=== PATIENT | female | born 1985 | race American Indian/Alaskan Native ===

== ENCOUNTER 2018-02-12 21:14 | Observation (INO) | payer OTHER ==
[2018-02-12 21:26] VITALS: O2SAT 100
--- NOTE | 2018-02-12 21:49 | ED PDOC ---
Arrival/HPI - General Historian: Patient - History of Present Illness Time/Duration: Other (this morning, intermittently throughout day) Symptom Onset: Sudden Symptom Course: Other (intermittent fevers, persisting malaise) Quality: Aching Severity Level: Mild Activities at Onset: Other (present on awaking) <Sloan Martinez - Last Filed: 02/12/18 23:18> <Sukumar Wright - Last Filed: 02/13/18 00:34> - General Chief Complaint: Fever Time Seen by Provider: 02/12/18 21:16 - History of Present Illness Narrative History of Present Illness (Text): 02/12/18 21:44 32 yo F with no PMH reporting currently 10 weeks () presenting with complaint of fever, malaise, and RLQ abd pain & R CVA pain. Reports felt feverish when awaking this AM, receded then recurred, improved with tylenol, but then recurrent again. Subjective only, never measured (99.7F on arrival to ED). Denies emesis, but does report malaise, decreased appetite and PO intake today (although tolerating what she did eat well). Reports right lower quadrant abdominal discomfort, predominantly along waistline region, but denies radiation or suprapubic tenderness. Also reports separate pain, along right CVA /flank region, also discomfort. Both pains only began this AM, neither exacerbated or relieved with urination or moving bowels. Denies constipation or diarrhea, dysuria, increased urinary frequency, or hematuria. Denies vaginal discharge. Denies any hx of abdominal surgery. Only regular medication is multivitamin. No followup with [facility] yet, only with PMD several weeks ago. 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 All other ROS in 12-system review negative. PMH: denies PSH: denies Fam Hx: Mother with DM Soc Hx: denies tobacco, alcohol, illicits PMD: (Sloan Martinez) Past Medical History - Provider Review Nursing Documentation Reviewed: Yes - Infectious Disease Hx of Infectious Diseases: None - Psychiatric Hx Substance Use: No - Anesthesia Hx Anesthesia: No <Sloan Martinez - Last Filed: 02/12/18 23:18> Family/Social History - Physician Review Nursing Documentation Reviewed: Yes Family/Social History: Diabetes Smoking Status: Never Smoked Hx Alcohol Use: No Hx Substance Use: No <Sloan Martinez - Last Filed: 02/12/18 23:18> Allergies/Home Meds <Sloan Martinez - Last Filed: 02/12/18 23:18> <Sukumar Wright - Last Filed: 02/13/18 00:34> Allergies/Adverse Reactions: Allergies No Known Allergies Allergy (Verified 02/12/18 21:26) Home Medications: Home Meds Medication Instructions Recorded Confirmed No Known Home Med 02/12/18 02/12/18 Review of Systems - Physician Review All systems were reviewed & negative as marked: Yes (as per HPI) - Review of Systems Constitutional: Fevers, Other (malaise). absent: Normal, Fatigue Eyes: absent: Vision Changes ENT: Normal. absent: Sore Throat, Rhinorrhea, Epistaxis, Sinus Congestion Respiratory: Normal. absent: SOB, Cough Cardiovascular: Normal. absent: Chest Pain, Palpitations, AGUILERA, Syncope Gastrointestinal: Abdominal Pain, Nausea (daily on awaking, reports baseline with this for last 6 weeks), Appetite Changes (decreased appetite today, but still tolerating PO intake, maintaining daily fluids). absent: Stool Changes, Constipation, Diarrhea, Vomiting, Hematochezia, Hematemesis, Food Intolerance Genitourinary Female: Normal. absent: Dysuria, Frequency, Hematuria, Urine Output Changes, Vaginal Bleeding, Vaginal Discharge Musculoskeletal: Back Pain (R lateral lumbar region/CVA region). absent: Neck Pain, Joint Swelling Skin: Normal. absent: Rash, Pruritis Neurological: Normal. absent: Headache, Dizziness, Focal Weakness Endocrine: absent: Diaphoresis, Polyuria, Polydipsia <Sloan Martinez - Last Filed: 02/12/18 23:18> Physical Exam Vital Signs Reviewed: Yes Temperature: Afebrile Blood Pressure: Normal Pulse: Regular Respiratory Rate: Normal Appearance: Positive for: Well-Appearing, Non-Toxic, Comfortable Pain Distress: Mild Mental Status: Positive for: Alert and Oriented X 3 - Systems Exam Head: Present: Atraumatic, Normocephalic. No: Contusion, Abrasion, Laceration Pupils: No: Pinpoint Extroacular Muscles: Present: EOMI. No: Gaze Palsy, Entrapment Conjunctiva: Present: Normal. No: Injected, Icteric Mouth: Present: Moist Mucous Membranes, Normal Lips, Normal Tounge, Normal Teeth. No: Dry, Drooling Nose (External): Present: Atraumatic. No: Abrasion, Laceration Nose (Internal): Present: No Active Bleeding. No: Epistaxis Neck: Present: Normal Range of Motion, Trachea Midline. No: MIDLINE TENDERNESS , JVD Respiratory/Chest: Present: Clear to Auscultation, Good Air Exchange. No: Respiratory Distress, Accessory Muscle Use, Wheezes, Rales, Rhonchi Cardiovascular: Present: Regular Rate and Rhythm, Normal S1, S2, Peripheal Pulses Present (+2 radials). No: Murmurs, Irregular Rhythm, Tachycardic, Bradycardic Abdomen: Present: Tenderness (statically tender at RLQ along waistline region, not acutely worsened or affected by palpation), Normal Bowel Sounds. No: Distention, Guarding, Mass/Organomegaly Back: Present: Normal Inspection, Other (reports right lateral lumbar region/ CVA static discomfort, not exacerabted with palpation, no appreciable CVA tenderness with palpation or tapping bilaterally) Upper Extremity: Present: Normal Inspection, Normal ROM, NORMAL PULSES. No: Cyanosis, Edema, Tenderness, Swelling, Erythema Lower Extremity: Present: Normal Inspection, Normal ROM. No: Edema, CALF TENDERNESS, Cyanosis Neurological: Present: GCS=15, Speech Normal, Motor Func Grossly Intact, Normal Sensory Function Skin: Present: Warm, Dry, Normal Color. No: Rashes, Diaphoretic, Pale Lymphatic: No: Cervical Adenopathy Psychiatric: Present: Alert, Oriented x 3, Normal Insight, Normal Concentration , Normal Affect, Normal Mood <Sloan Martinez - Last Filed: 02/12/18 23:18> <Sukumar Wright - Last Filed: 02/13/18 00:34> Vital Signs Temp Pulse Resp BP Pulse Ox 02/12/18 23:51 97.8 F 02/12/18 23:33 97.8 F 72 18 111/75 100 02/12/18 22:51 99.7 F H 02/12/18 21:22 99.7 F H 88 18 115/74 100 Medical Decision Making <Sloan Martinez - Last Filed: 02/12/18 23:18> <Sukumar Wright - Last Filed: 02/13/18 00:34> ED Course and Treatment: 02/12/18 21:54 Ddx: UTI in vs non-specific nausea/malaise 2/2 , r/o Pyelonephritis and cholecystitis Less likely cholecystitis given lack of emesis, but obtaining US abd to assess kidneys so will check GB as well CBC, CMP, Mg, Phos, and UA to assess for acute metabolic derangement or infectious processes B-HCG quat serum ordered Tylenol 650mg x1 ordered give temp 99.7F despite prior tylenol at home (approx 4 hrs prior to presentation) Blood and Urine cultures ordered as will be empirically covering with abx if UA is suggestive of infectious process given 02/12/18 23:18 UA notable for trace leuk esterase, trace bacteria, and small blood, but labs concerning for leukopenia with WBC 2.7 Started Rocephin 2g IV x1 Case discussed with Hospitalist long chain beamer, Dr. Kristie Olmedo, who accepts patient for obs admission due to febrile leukopenia in setting of , presumed UTI. residential program director long chain beamer notified. Patient seen, reviewed, and discussed with attending, Dr. Wright (Sloan Martinez) 02/12/18 23:08: A 32 year old female who presents to the emergency department for a complaint of reccuring episodes of fever today. In agreement with resident note, which includes further HPI details. Patient was seen and evaluated with resident, came up with plan and treatment together. 02/12/18 23:06: Case discussed in detail with Dr. Aleta Olmedo who accepts patient to her service. (Sukumar Wright) - Lab Interpretations Lab Results: 02/12/18 22:19 02/12/18 22:19 Lab Results 02/12/18 22:45: Urine Color Yellow, Urine Appearance Clear, Urine pH 8.0, Ur Specific Dewitt 1.010, Urine Protein Negative, Urine Glucose (UA) Negative, Urine Ketones Negative, Urine Blood Small H, Urine Nitrate Negative, Urine Bilirubin Negative, Urine Urobilinogen 0.2, Ur Leukocyte Esterase Trace H, Urine RBC 1 - 3, Urine WBC 0 - 2, Ur Epithelial Cells 0 - 2, Urine Bacteria Trace 02/12/18 22:19: Beta HCG, Quant [id number] H 02/12/18 22:19: Sodium 138, Potassium 3.7, Chloride 106, Carbon Dioxide 18 L, Anion Gap 17, BUN 5 L, Creatinine 0.4 L, Est GFR ( Amer) > 60, Est GFR ( Non-Af Amer) > 60, Random Glucose 95, Calcium 9.0, Phosphorus 2.6, Magnesium 1.8 , Total Bilirubin 0.2, AST 18, ALT 28, Alkaline Phosphatase 31 L, Total Protein 7.1, Albumin 4.0, Globulin 3.1, Albumin/Globulin Ratio 1.3 02/12/18 22:19: WBC 2.7 L*, RBC 3.59, Hgb 11.3 L, Hct 32.1 L, MCV 89.4, MCH 31.5 , MCHC 35.2, RDW 12.3, Plt Count 215, MPV 9.6, Gran % 68.7 H, Lymph % (Auto) 18.0 L, [place] % (Auto) 12.5 H, Eos % (Auto) 0.4 L, Baso % (Auto) 0.4, Gran # 1.87 , Lymph # (Auto) 0.5 L, [place] # (Auto) 0.3, Eos # (Auto) 0.0, Baso # (Auto) 0.01 - RAD Interpretation Radiology Orders: 02/12/18 21:41 ABDOMEN COMPLETE [US] Stat - Medication Orders Current Medication Orders: Sodium Chloride (Sodium Chloride 0.9%) 1,000 mls @ 100 mls/hr IV .Q10H SAMANTHA Pantoprazole Sodium (Protonix Inj) 40 mg IVP DAILY SAMANTHA Discontinued Medications Acetaminophen (Tylenol 325mg Tab) 650 mg PO STAT STA Stop: 02/12/18 21:43 Last Admin: 02/12/18 22:51 Dose: 650 mg [facility] Pain/Vitals Document 02/12/18 22:51 RG (Rec: 02/12/18 22:51 [facility] [id number] Location Pain Location Body Site Knee Vitals Temperature (97.6 F-99.6 F) 99.7 F Temperature Source Oral Re-Assess: JACOB Pain/Vitals Document 02/12/18 23:51 RG (Rec: 02/12/18 23:57 RG [facility] [id number]) Vitals Temperature (97.6 F-99.6 F) 97.8 F Temperature Source Oral Ceftriaxone Sodium (Rocephin 2 Gm Ivpb) 2 gm in 100 mls @ 100 mls/hr IVPB STAT STA PRN Reason: Protocol Stop: 02/12/18 23:41 Last Admin: 02/12/18 23:18 Dose: 100 mls/hr eMAR Start Stop Document 02/12/18 23:18 RG (Rec: 02/12/18 23:19 RG [facility] [id number]) Intravenous Solution Start Date 02/12/18 Start Time 23:18 <Sloan Martinez - Last Filed: 02/12/18 23:18> - PA / JACQUARD LOOM WEAVER / Resident Statement MD/DO has reviewed & agrees with the documentation as recorded. MD/DO has examined the patient and agrees with the treatment plan. - Scribe Statement The provider has reviewed the documentation as recorded by the Scribe <Sukumar Wright - Last Filed: 02/13/18 00:34> - Scribe Statement Ema Garcia Provider Scribe Attestation: All medical record entries made by the Scribe were at my direction and personally dictated by me. I have reviewed the chart and agree that the record accurately reflects my personal performance of the history, physical exam, medical decision making, and the department course for this patient. I have also personally directed, reviewed, and agree with the discharge instructions and disposition. (Sukumar Wright) Disposition/Present on Arrival - Present on Arrival Any Indicators Present on Arrival: No History of DVT/PE: No History of Uncontrolled Diabetes: No Urinary Catheter: No History of Decub. Ulcer: No History Surgical Site Infection Following: None - Disposition Have Diagnosis and Disposition been Completed?: Yes Disposition Time: 23:21 Patient Plan: Admission, Observation <Sloan Martinez - Last Filed: 02/12/18 23:18> <Sukumar Wright - Last Filed: 02/13/18 00:34> - Disposition Diagnosis: Leukopenia, UTI in Disposition: HOME/ ROUTINE Patient Problems: Current Active Problems Problem Status Onset Leukopenia Acute UTI in Acute Condition: FAIR
[2018-02-12 22:24] LABS: BASO # 0.01 K/mm3 (0.0-2.0); BASO % 0.4 % (0.0-3.0); EOS % 0.4 % (1.5-5.0); GRAN # 1.87 (1.4-6.5); GRAN % 68.7 % (50.0-68.0); HEMOGLOBIN 11.3 g/dL (12.0-16.0); LYMPH # 0.5 (1.2-3.4); MEAN CELL VOLUME 89.4 fl (80.0-105.0); MEAN CORPUSCULAR HEMOGLOBIN 31.5 pg (25.0-35.0); MEAN CORPUSCULAR HGB CONC 35.2 g/dl (31.0-37.0); MEAN PLATELET VOLUME 9.6 fl (7.0-11.0); MONO # 0.3 (0.1-0.6); MONO % 12.5 % (1.0-6.0); RBC 3.59 10^6/uL (3.5-6.1); RED CELL DISTRIBUTION WIDTH 12.3 % (11.5-14.5)
[2018-02-12 22:30] LABS: WHITE BLOOD COUNT 2.7 10^3/ul (4.5-11.0)
[2018-02-12 22:34] LABS: ALB/GLOB RATIO 1.3 (1.1-1.8); ALT/SGPT 28 U/L (7-56); AST/SGOT 18 U/L (14-36); BLOOD UREA NITROGEN 5 mg/dL (7-21); GFR AFRICAN-AMERICAN > 60; GFR NON-AFRICAN AMERICAN > 60
[2018-02-12] MEDS ORDERED: cefTRIAXone 2 GM IN NS 2 GM/100 ML BAG IVPB STA (22:42)
[2018-02-12 23:00] LABS: URINE BILIRUBIN NEGATIVE (NEGATIVE); URINE BLOOD SMALL (NEGATIVE); URINE GLUCOSE (UA) NEGATIVE (NEGATIVE); URINE LEUKOCYTE ESTERASE TRACE Leu/uL (NEGATIVE); URINE PROTEIN NEGATIVE mg/dL (<30 mg/dL); URINE UROBILINOGEN 0.2 E.U./dL (<1 E.U./dL)
[2018-02-12 23:01] LABS: URINE APPEARANCE CLEAR (CLEAR); URINE COLOR YELLOW (YELLOW)
[2018-02-12 23:04] LABS: URINE BACTERIA TRACE (NEG); URINE EPITHELIAL CELLS 0 - 2 /hpf (0-5); URINE WBC 0 - 2 /hpf (0-6)
--- NOTE | 2018-02-12 23:32 | CP.PCM.HP ---
History of Present Illness - History of Present Illness History of Present Illness: 32 year old female who comes into [facility] complaining of subjective fevers, malaise, llq and rlq abdominal pain and right back pain since this morning. The patient states she felt feverish this morning when she woke up. She reports taking Tylenol twice with improvement in her symptoms. She also reports some right lower and left lower quadrant pain that began this morning as well. She reports it being sharp in nature with no radiation. In conjunction she also reported feeling nauseaous. She denies any dysuria, hematuria or distention. She also denies any chest pain, shortness of breath, chills, changes in vision, syncopal episodes, or any other compliants. PMD: Dr. Jimenez Past medical history: Denies Past surgical history: Denies Medications: Pre- vitamin Allergies: Denies Family history: Mom late development of Diabetes Present on Admission - Present on Admission Any Indicators Present on Admission: No Review of Systems - Constitutional Constitutional: Malaise. absent: Daytime Sleepiness, Frequent Falls, Headache, Night Sweats, Snoring, Weight Loss - EENT Eyes: absent: Blurred Vision, Discharge, Loss of Peripheral Vision, Requires Corrective Lenses, Other Visual Disturbances Ears: absent: Ear Discharge, Dizziness Nose/Mouth/Throat: absent: Nasal Congestion, Nose Pain, Bleeding Gums, Halitosis , Mouth Pain, Facial Pain - Cardiovascular Cardiovascular: absent: Chest Pain, Claudication, Irregular Heart Rhythm, Leg Edema, Palpitations, Syncope - Respiratory Respiratory: absent: Cough, Dyspnea, Hemoptysis, Snoring - Gastrointestinal Gastrointestinal: Nausea. absent: Belching, Change in Stool Character, Diarrhea , Excessive Flatus, Fecal Incontinence, Melena, Temesmus, Vomiting - Genitourinary Genitourinary: absent: Change in Urinary Stream, Pyuria, Nocturia, Urinary Incontinence, Urinary Frequency, Freq UTI - Reproductive: Female Reproductive:Female: absent: Spotting Between Cycles, Abnormal Vaginal Bleeding - Musculoskeletal Musculoskeletal: absent: Abnormal Gait, Arthralgias, Atrophy, Neck Pain, Numbness, Stiffness - Integumentary Integumentary: absent: Dry Skin, Pruritus, Skin Pain, Swelling - Neurological Neurological: absent: Abnormal Gait, Abnormal Hearing, Behavioral Changes, Burning Sensations, Dizziness, Paresthesias, Tingling, Tremor, Vertigo, Weakness - Psychiatric Psychiatric: absent: Panic Attacks, Paranoia, Visual Hallucinations, Tactile Hallucinations - Endocrine Endocrine: absent: Polydipsia, Polyphagia, Polyuria - Hematologic/Lymphatic Hematologic: absent: Easy Bleeding, Easy Bruising Past Patient History - Infectious Disease Hx of Infectious Diseases: None - Past Social History Smoking Status: Never Smoked - PSYCHIATRIC Hx Substance Use: No - SURGICAL HISTORY Hx Surgeries: No - ANESTHESIA Hx Anesthesia: No Meds Allergies/Adverse Reactions: Allergies Allergy/AdvReac Type Severity Reaction Status Date / Time No Known Allergies Allergy Verified 02/12/18 21:26 Physical Exam - Head Exam Head Exam: ATRAUMATIC, NORMAL INSPECTION, NORMOCEPHALIC - Eye Exam Eye Exam: EOMI, Normal appearance, PERRL Pupil Exam: NORMAL ACCOMODATION, PERRL - ENT Exam ENT Exam: Mucous Membranes Moist, Normal Oropharynx. absent: TM's Normal Bilaterally - Respiratory Exam Respiratory Exam: Clear to Auscultation Bilateral, NORMAL BREATHING PATTERN. absent: Prolonged Expiratory Phase, Respiratory Distress - Cardiovascular Exam Cardiovascular Exam: REGULAR RHYTHM, RRR, +S1, +S2. absent: Gallop, Rubs - GI/Abdominal Exam GI & Abdominal Exam: Normal Bowel Sounds, Soft. absent: Organomegaly, Tenderness - Extremities Exam Extremities exam: Positive for: normal inspection. Negative for: full ROM, joint swelling, pedal edema, tenderness - Back Exam Back exam: NORMAL INSPECTION. absent: CVA tenderness (L), CVA tenderness (R) - Neurological Exam Neurological exam: Alert, CN II-XII Intact, Oriented x3 - Psychiatric Exam Psychiatric exam: Normal Affect, Normal Mood - Skin Skin Exam: Dry, Intact, Normal Color Results - Vital Signs Recent Vital Signs: Last Vital Signs Temp 99.7 F H 02/12/18 22:51 Pulse 88 02/12/18 21:22 Resp 18 02/12/18 21:22 BP 115/74 02/12/18 21:22 Pulse Ox 100 02/12/18 21:22 - Labs Result Diagrams: 02/12/18 22:19 02/12/18 22:19 Assessment & Plan - Assessment and Plan (Free Text) Assessment: 32 year old female comes in with complaints of fatigue, malaise, Right mid back pain and right lower and left lower quadrant abdominal pain. Plan: 1. Right lower and left lower abdominal pain Ectopic vs GI dysfunction vs. Constipation -Ab u/s ordered. Results pending -Beta hc -Ct contradindicated at this time. 2. Mid right back pain -Upon admission (+) cva tenderness. Negative upon re-evaluation -U/A showed: Trace leukocyte esterase, Trace bacteria -Patient asymptomatic with no urinary symptoms 3. Leukopenia -WBC 2.7 upon admission -Infectious Disease consulted. Help appreciated. -Patient denies any history of illnesses. -Family at bedside and couldn't probe further -HIV ordered. Will f/u with results. -Heme/Onc consulted. Help appreciated 4.Normocytic Anemia H/H upon admission 11.3/32.1 MCV:89.4 Anemia profile ordered. Will f/u with results. 5.Distal RTA Acidosis -Autoimmune panel ordered .Will f/u with results. Urine ph: 8 6. Monocytosis -IgG sublcass panel ordered. Will f/u with results. PPX -Protonix -SCD's Plan discussed with Dr. Orion Esposito, PGY-1
[2018-02-13] MEDS ORDERED: Sodium Chloride 0.9% 1,000 ML IV SCH (00:30)
[2018-02-13 03:34] VITALS: BMI 21.9
[2018-02-13 07:21] VITALS: BP 101/60; PULSE 66; RESP 18; TEMP 97.9
[2018-02-13 07:48] LABS: BASO # 0.02 K/mm3 (0.0-2.0); BASO % 0.8 % (0.0-3.0); EOS % 0.4 % (1.5-5.0); GRAN # 1.51 (1.4-6.5); GRAN % 58.8 % (50.0-68.0); HEMOGLOBIN 10.9 g/dL (12.0-16.0); LYMPH # 0.6 (1.2-3.4); LYMPH % 23.3 % (22.0-35.0); MEAN CELL VOLUME 90.1 fl (80.0-105.0); MEAN CORPUSCULAR HEMOGLOBIN 30.8 pg (25.0-35.0); MEAN CORPUSCULAR HGB CONC 34.2 g/dl (31.0-37.0); MEAN PLATELET VOLUME 9.5 fl (7.0-11.0); MONO # 0.4 (0.1-0.6); MONO % 16.7 % (1.0-6.0); RBC 3.54 10^6/uL (3.5-6.1); RED CELL DISTRIBUTION WIDTH 12.4 % (11.5-14.5)
[2018-02-13 07:54] LABS: WHITE BLOOD COUNT 2.6 10^3/ul (4.5-11.0)
[2018-02-13 08:14] LABS: ALB/GLOB RATIO 1.2 (1.1-1.8); ALBUMIN 3.5 g/dL (3.0-4.8); ALT/SGPT 29 U/L (7-56); AST/SGOT 20 U/L (14-36); BLOOD UREA NITROGEN 3 mg/dL (7-21); CALCIUM 8.6 mg/dL (8.4-10.5); GFR AFRICAN-AMERICAN > 60; GFR NON-AFRICAN AMERICAN > 60
[2018-02-13] MEDS ORDERED: cefTRIAXone 1 gm 1 GM/100 ML BAG IVPB SCH (10:00)
--- NOTE | 2018-02-13 11:52 | CP.PCM.DIS ---
<Evy Guzman - Last Filed: 02/13/18 13:33> Provider - Provider Date of Admission: 02/12/18 23:08 Attending physician: Onofre Parikh MD Consults: ID: Dr. [email or web address] computer terminal operator: Dr. Goss Time Spent in preparation of Discharge (in minutes): 35 Hospital Course - Lab Results Lab Results: Most Recent Lab Values WBC 2.6 10^3/ul (4.5-11.0) L* 02/13/18 07:30 RBC 3.54 10^6/uL (3.5-6.1) 02/13/18 07:30 Hgb 10.9 g/dL (12.0-16.0) L 02/13/18 07:30 Hct 31.9 % (36.0-48.0) L 02/13/18 07:30 MCV 90.1 fl (80.0-105.0) 02/13/18 07:30 MCH 30.8 pg (25.0-35.0) 02/13/18 07:30 MCHC 34.2 g/dl (31.0-37.0) 02/13/18 07:30 RDW 12.4 % (11.5-14.5) 02/13/18 07:30 Plt Count 191 10^3/uL (120.0-450.0) 02/13/18 07:30 MPV 9.5 fl (7.0-11.0) 02/13/18 07:30 Gran % 58.8 % (50.0-68.0) 02/13/18 07:30 Lymph % (Auto) 23.3 % (22.0-35.0) 02/13/18 07:30 Calhoun % (Auto) 16.7 % (1.0-6.0) H 02/13/18 07:30 Eos % (Auto) 0.4 % (1.5-5.0) L 02/13/18 07:30 Baso % (Auto) 0.8 % (0.0-3.0) 02/13/18 07:30 Gran # 1.51 (1.4-6.5) 02/13/18 07:30 Lymph # (Auto) 0.6 (1.2-3.4) L 02/13/18 07:30 Calhoun # (Auto) 0.4 (0.1-0.6) 02/13/18 07:30 Eos # (Auto) 0.0 (0.0-0.7) 02/13/18 07:30 Baso # (Auto) 0.02 K/mm3 (0.0-2.0) 02/13/18 07:30 ESR 20 mm/hr (0.0-20.0) 02/13/18 07:30 Sodium 139 mmol/L (132-148) 02/13/18 07:30 Potassium 3.7 mmol/L (3.6-5.0) 02/13/18 07:30 Chloride 108 mmol/L (98-107) H 02/13/18 07:30 Carbon Dioxide 21 mmol/L (21-33) 02/13/18 07:30 Anion Gap 13 (10-20) 02/13/18 07:30 BUN 3 mg/dL (7-21) L 02/13/18 07:30 Creatinine 0.4 mg/dl (0.7-1.2) L 02/13/18 07:30 Est GFR ( Amer) > 60 02/13/18 07:30 Est GFR (Non-Af Amer) > 60 02/13/18 07:30 Random Glucose 80 mg/dL (70-110) 02/13/18 07:30 Calcium 8.6 mg/dL (8.4-10.5) 02/13/18 07:30 Phosphorus 2.6 mg/dL (2.5-4.5) 02/12/18 22:19 Magnesium 1.8 mg/dL (1.7-2.2) 02/13/18 07:30 Total Bilirubin 0.1 mg/dL (0.2-1.3) L 02/13/18 07:30 AST 20 U/L (14-36) 02/13/18 07:30 ALT 29 U/L (7-56) 02/13/18 07:30 Alkaline Phosphatase 30 U/L (38-126) L 02/13/18 07:30 Total Protein 6.4 g/dL (5.8-8.3) 02/13/18 07:30 Albumin 3.5 g/dL (3.0-4.8) 02/13/18 07:30 Globulin 2.9 gm/dL 02/13/18 07:30 Albumin/Globulin Ratio 1.2 (1.1-1.8) 02/13/18 07:30 Beta HCG, Quant 318925.00 mIU/mL (0-6.15) H 02/12/18 22:19 Urine Color Yellow (YELLOW) 02/12/18 22:45 Urine Appearance Clear (CLEAR) 02/12/18 22:45 Urine pH 8.0 (4.7-8.0) 02/12/18 22:45 Ur Specific Childress 1.010 (1.005-1.035) 02/12/18 22:45 Urine Protein Negative mg/dL (<30 mg/dL) 02/12/18 22:45 Urine Glucose (UA) Negative mg/dL (NEGATIVE) 02/12/18 22:45 Urine Ketones Negative mg/dL (NEGATIVE) 02/12/18 22:45 Urine Blood Small (NEGATIVE) H 02/12/18 22:45 Urine Nitrate Negative (NEGATIVE) 02/12/18 22:45 Urine Bilirubin Negative (NEGATIVE) 02/12/18 22:45 Urine Urobilinogen 0.2 E.U./dL (<1 E.U./dL) 02/12/18 22:45 Ur Leukocyte Esterase Trace Lore/uL (NEGATIVE) H 02/12/18 22:45 Urine RBC 1 - 3 /hpf (0-2) 02/12/18 22:45 Urine WBC 0 - 2 /hpf (0-6) 02/12/18 22:45 Ur Epithelial Cells 0 - 2 /hpf (0-5) 02/12/18 22:45 Urine Bacteria Trace (NEG) 02/12/18 22:45 - Hospital Course Hospital Course: This is a 29yo [place] female with past medical history of malaria (tx as child) who was admitted for lower abdominal pain and subjective fevers x 1 day. Abdominal U/S did not have any acute abnormalities. Transvanginal U/S showed 3 leiomyomas (largest is ~4cm) and intrauterine (9wks 6 days). Patient was found to be leukopenic with UTI on U/A. Tmax was noted to be 99.7. ID was consulted. HIV and autoimmune work up is pending to rule out causes of leukopenia w/ monocytosis. We will inform patient of results once they are available. She was also found to be anemic which can be normal in . Patient reports that she feels much better today. She denies abdominal pain, vaginal discharge, vaginal bleeding, dysuria/hematuria, nausea/vomiting/ diarrhea. Patient will be discharged home on Macrobid 100mg BID x 5 days for UTI. She was instructed to follow up with her PMD (in [place]) on Thursday for repeat blood work. She was also instructed to follow up with her computer terminal operator. Patient was given imaging results to bring to her PMD and OB. Patient verbalized agreement and understanding of discharge plan. - Date & Time of H&P Date of H&P: 02/12/18 Time of H&P: 23:00 Discharge Exam - Head Exam Head Exam: ATRAUMATIC, NORMAL INSPECTION, NORMOCEPHALIC - Eye Exam Eye Exam: Normal appearance, PERRL Pupil Exam: NORMAL ACCOMODATION - Respiratory Exam Respiratory Exam: Clear to PA & Lateral, NORMAL BREATHING PATTERN, UNREMARKABLE. absent: Rales, Rhonchi, Wheezes - Cardiovascular Exam Cardiovascular Exam: REGULAR RHYTHM, +S1, +S2. absent: Gallop, Rubs, Systolic Murmur - GI/Abdominal Exam GI & Abdominal Exam: Normal Bowel Sounds, Soft. absent: Mass, Rebound, Rigid, Tenderness - Extremities Exam Extremities exam: normal inspection - Neurological Exam Neurological exam: Alert, CN II-XII Intact, Oriented x3 - Psychiatric Exam Psychiatric exam: Normal Affect, Normal Mood - Skin Skin Exam: Dry, Warm Discharge Plan - Discharge Medications Prescriptions: Nitrofurantoin Macrocrystals [Macrobid] 100 mg PO BID #10 cap - Follow Up Plan Condition: FAIR Disposition: HOME/ ROUTINE Instructions: Urinary Tract Infection in Women (DC) Additional Instructions: 1. Take Macrobid for 5 days. 2. Follow up with PMD on Thursday to repeat blood work. WBC were low. 3. Follow up with LOADING UNIT OPERATOR SEATING early next week. We will give you Ultrasound results. <Corinna Perez - Last Filed: 02/13/18 23:14> Provider - Provider Date of Admission: 02/12/18 23:08 Attending physician: Onofre Parikh MD Hospital Course - Lab Results Lab Results: Most Recent Lab Values WBC 2.6 10^3/ul (4.5-11.0) L* 02/13/18 07:30 RBC 3.54 10^6/uL (3.5-6.1) 02/13/18 07:30 Hgb 10.9 g/dL (12.0-16.0) L 02/13/18 07:30 Hct 31.9 % (36.0-48.0) L 02/13/18 07:30 MCV 90.1 fl (80.0-105.0) 02/13/18 07:30 MCH 30.8 pg (25.0-35.0) 02/13/18 07:30 MCHC 34.2 g/dl (31.0-37.0) 02/13/18 07:30 RDW 12.4 % (11.5-14.5) 02/13/18 07:30 Plt Count 191 10^3/uL (120.0-450.0) 02/13/18 07:30 MPV 9.5 fl (7.0-11.0) 02/13/18 07:30 Gran % 58.8 % (50.0-68.0) 02/13/18 07:30 Lymph % (Auto) 23.3 % (22.0-35.0) 02/13/18 07:30 Calhoun % (Auto) 16.7 % (1.0-6.0) H 02/13/18 07:30 Eos % (Auto) 0.4 % (1.5-5.0) L 02/13/18 07:30 Baso % (Auto) 0.8 % (0.0-3.0) 02/13/18 07:30 Gran # 1.51 (1.4-6.5) 02/13/18 07:30 Lymph # (Auto) 0.6 (1.2-3.4) L 02/13/18 07:30 Calhoun # (Auto) 0.4 (0.1-0.6) 02/13/18 07:30 Eos # (Auto) 0.0 (0.0-0.7) 02/13/18 07:30 Baso # (Auto) 0.02 K/mm3 (0.0-2.0) 02/13/18 07:30 ESR 20 mm/hr (0.0-20.0) 02/13/18 07:30 Sodium 139 mmol/L (132-148) 02/13/18 07:30 Potassium 3.7 mmol/L (3.6-5.0) 02/13/18 07:30 Chloride 108 mmol/L (98-107) H 02/13/18 07:30 Carbon Dioxide 21 mmol/L (21-33) 02/13/18 07:30 Anion Gap 13 (10-20) 02/13/18 07:30 BUN 3 mg/dL (7-21) L 02/13/18 07:30 Creatinine 0.4 mg/dl (0.7-1.2) L 02/13/18 07:30 Est GFR ( Amer) > 60 02/13/18 07:30 Est GFR (Non-Af Amer) > 60 02/13/18 07:30 Random Glucose 80 mg/dL (70-110) 02/13/18 07:30 Calcium 8.6 mg/dL (8.4-10.5) 02/13/18 07:30 Phosphorus 2.6 mg/dL (2.5-4.5) 02/12/18 22:19 Magnesium 1.8 mg/dL (1.7-2.2) 02/13/18 07:30 Ferritin 22.0 ng/mL 02/13/18 07:30 Total Bilirubin 0.1 mg/dL (0.2-1.3) L 02/13/18 07:30 AST 20 U/L (14-36) 02/13/18 07:30 ALT 29 U/L (7-56) 02/13/18 07:30 Alkaline Phosphatase 30 U/L (38-126) L 02/13/18 07:30 Total Protein 6.4 g/dL (5.8-8.3) 02/13/18 07:30 Albumin 3.5 g/dL (3.0-4.8) 02/13/18 07:30 Globulin 2.9 gm/dL 02/13/18 07:30 Albumin/Globulin Ratio 1.2 (1.1-1.8) 02/13/18 07:30 Vitamin B12 448 pg/mL (239-931) 02/13/18 07:30 Folate 17.6 ng/mL 02/13/18 07:30 Beta HCG, Quant 551579.00 mIU/mL (0-6.15) H 02/12/18 22:19 Urine Color Yellow (YELLOW) 02/12/18 22:45 Urine Appearance Clear (CLEAR) 02/12/18 22:45 Urine pH 8.0 (4.7-8.0) 02/12/18 22:45 Ur Specific Childress 1.010 (1.005-1.035) 02/12/18 22:45 Urine Protein Negative mg/dL (<30 mg/dL) 02/12/18 22:45 Urine Glucose (UA) Negative mg/dL (NEGATIVE) 02/12/18 22:45 Urine Ketones Negative mg/dL (NEGATIVE) 02/12/18 22:45 Urine Blood Small (NEGATIVE) H 02/12/18 22:45 Urine Nitrate Negative (NEGATIVE) 02/12/18 22:45 Urine Bilirubin Negative (NEGATIVE) 02/12/18 22:45 Urine Urobilinogen 0.2 E.U./dL (<1 E.U./dL) 02/12/18 22:45 Ur Leukocyte Esterase Trace Lore/uL (NEGATIVE) H 02/12/18 22:45 Urine RBC 1 - 3 /hpf (0-2) 02/12/18 22:45 Urine WBC 0 - 2 /hpf (0-6) 02/12/18 22:45 Ur Epithelial Cells 0 - 2 /hpf (0-5) 02/12/18 22:45 Urine Bacteria Trace (NEG) 02/12/18 22:45 Attending/Attestation - Attestation I have personally seen and examined this patient.: Yes I have fully participated in the care of the patient.: Yes I have reviewed all pertinent clinical information, including history, physical exam and plan: Yes
--- NOTE | 2018-02-13 11:52 | CP.PCM.CON ---
History of Present Illness - History of Present Illness History of Present Illness: 32 year old female with no significant PMH came in to [facility] complaining of fever, chills, generalized weakness, nausea as well as lower abdominal pain and back pain for the past day. She denies falls or trauma to the back or abdomen, denies diarrhea, no dysuria or hematuria, no vaginal discharge. She also denies headache or dizziness, no SOB, no cough or colds, no sore throat, no dysphagia. The patient states that she is 10 weeks . In the ED, she is noted to have temperatures of 99.7F. Infectious Diseases consult is requested to further evaluate and manage. Review of Systems - Review of Systems All systems: reviewed and no additional remarkable complaints except (as per HPI ) Past Patient History - Infectious Disease Hx of Infectious Diseases: None - Past Social History Smoking Status: Never Smoked - CARDIAC Hx Cardiac Disorders: No - PULMONARY Hx Respiratory Disorders: No - NEUROLOGICAL Hx Neurological Disorder: No - HEENT Hx HEENT Problems: No - RENAL Hx Chronic Kidney Disease: No - ENDOCRINE/METABOLIC Hx Endocrine Disorders: No - HEMATOLOGICAL/ONCOLOGICAL Hx Blood Disorders: No - INTEGUMENTARY Hx Dermatological Problems: No - MUSCULOSKELETAL/RHEUMATOLOGICAL Hx Musculoskeletal Disorders: No Hx Falls: No - GASTROINTESTINAL Hx Gastrointestinal Disorders: No - GENITOURINARY/GYNECOLOGICAL Hx Genitourinary Disorders: No - PSYCHIATRIC Hx Substance Use: No - SURGICAL HISTORY Hx Surgeries: No - ANESTHESIA Hx Anesthesia: No Meds Allergies/Adverse Reactions: Allergies Allergy/AdvReac Type Severity Reaction Status Date / Time No Known Allergies Allergy Verified 02/12/18 21:26 - Medications Medications: Current Medications Sodium Chloride (Sodium Chloride 0.9%) 1,000 mls @ 100 mls/hr IV .Q10H [facility] Last Admin: 02/13/18 00:53 Dose: 100 mls/hr Pantoprazole Sodium (Protonix Inj) 40 mg IVP DAILY [facility] Physical Exam - Constitutional Appears: Non-toxic, No Acute Distress - Head Exam Head Exam: NORMAL INSPECTION - ENT Exam ENT Exam: Mucous Membranes Moist - Neck Exam Neck exam: Negative for: Lymphadenopathy, Meningismus - Respiratory Exam Respiratory Exam: absent: Rales, Rhonchi - Cardiovascular Exam Cardiovascular Exam: +S1, +S2 - GI/Abdominal Exam GI & Abdominal Exam: Soft. absent: Tenderness - Back Exam Back exam: absent: CVA tenderness (L), CVA tenderness (R) Results - Vital Signs Recent Vital Signs: Last Vital Signs Temp 99.4 F 02/13/18 03:21 Pulse 71 02/13/18 03:21 Resp 20 02/13/18 03:21 BP 108/69 02/13/18 03:21 Pulse Ox 100 02/13/18 00:50 - Labs Result Diagrams: 02/13/18 07:30 02/13/18 07:30 Assessment & Plan - Assessment and Plan (Free Text) Plan: Assessment R/O acute pyelonephritis in this patient 10 weeks Plan Started Rocephin and follow blood and urine cx; will follow up abdominal and vaginal ultrasound will monitor clinically will check HIV test
[2018-02-13 14:16] LABS: FOLATE 17.6 ng/mL
--- NOTE | 2018-02-13 17:55 | US ---
HISTORY: abd/R CVA pain, assess kidneys and GB COMPARISON: None. TECHNIQUE: Sonographic evaluation of the abdomen. FINDINGS: LIVER: Measures 14.8 cm. Normal echogenicity of the liver parenchyma. No mass. No intrahepatic bile duct dilatation. GALLBLADDER: Unremarkable. No gallstones. No sonographic Pimentel sign COMMON BILE DUCT: Measures 3.3 mm. No stones. No dilatation. PANCREAS: Unremarkable as visualized. No mass. No ductal dilatation. RIGHT KIDNEY: Measures 11.9 x 4.3 x 6.7cm. Normal echogenicity. No calculus, mass, or hydronephrosis. LEFT KIDNEY: Measures 11.5 x 6.0 x 7.0cm. Normal echogenicity. No calculus, mass, or hydronephrosis. Small cyst midpole left kidney measuring 1.9 x 1.6 x 2.1 SPLEEN: Normal in size and contour. No mass. AORTA: No aneurysmal dilatation. IVC: Unremarkable. OTHER FINDINGS: None. IMPRESSION: Small cyst midpole left kidney.
--- NOTE | 2018-02-13 18:06 | US ---
HISTORY: , assess HR COMPARISON: None available. TECHNIQUE: OB ultrasound dated 02/13/2018 FINDINGS: UTERUS: Measures 10.7 x 7.1 x 5.9 cm. . . Large uterine fibroid anterior mid uterine wall measuring 4.1 x 3.9 x 3.1 cm. There are at least 2 uterine fibroid along the posterior uterine wall which measures approximately 1.7 x 1.2 x 1.7 and the other measuring 2.1 x 1.7 x 2.7 cm. ENDOMETRIUM: There is a single living intrauterine gestation. Gestational sac: MS D = 4.1 cm = 9 weeks 4 days Yolk sac: 0.58 cm. pole: CRL = 3.04 cm = 10 weeks 0 days Heart motion = 160 BPM Average ultrasound age = 9 weeks 6 days 0 weeks 5 days ISRA based on average ultrasound age 0109/12/2018 CERVIX: No cervical abnormality identified. Cervix measures 2.5 cm RIGHT OVARY: Not visualized LEFT OVARY: Measures 3.9 x 2.3 x 4.1 cm. No solid mass. Normal flow. FREE FLUID: No significant free fluid noted. OTHER FINDINGS: None. IMPRESSION: Single living intrauterine gestation of with estimated ultrasound age 9 weeks 6 days. . Heart rate document at 160 BPM. Large anterior wall fibroid with 2 smaller posterior wall fibroids.
[2018-02-17 02:12] LABS: IGG SUBCLASS 4 96.4 mg/dL (4.0-86.0)
== END 2018-02-13 14:28 | disposition home or self-care (01) ==
LOC: ED 21:14 → ERH 23:08 → 3RNO 02-13 01:00
PROVIDERS: ADMIT Internal Medicine; ATTEND Internal Medicine
DX: O23.41 Unspecified infection of urinary tract in pregnancy, first trimester (principal); Z3A.10 10 weeks gestation of pregnancy; D64.9 Anemia, unspecified; Z83.3 Family history of diabetes mellitus; Z86.13 Personal history of malaria
CPT/HCPCS: 36415; 76700; 76817; 80053; 81001; 82607; 82728; 82746; 82784; 82787; 83735; 84100; 84702; 85025; 85651; 86039; 86235; 87040; 87086; 87389; 96365; 96375; 99285; C9113; G0378; J0696; J7030